=== PATIENT | female | born 1965 | race Caucasian/White ===

== ENCOUNTER 2016-04-01 11:01 | Emergency (ER) | payer OTHER ==
[~2016-04-01] VITALS: Ht 162.6 cm; Wt 77.1 kg
[~2016-04-01 11:01] MED LIST: ATIVAN0.5 MG PO; BENTYL20 MG PO; CIPROFLOXACIN500 MG PO; FLOMAX(MONOGRA0.4 MG PO; GUAIFENESIN-COD10 ML PO; HYDRALAZINE HCL10 M1 PO; MEDROL4 M2 PO; NORVASC10 M1 PO; PERCOCET 325 MG1 TA2 PO; PERCOCET 5-3251 EACH PO; PRILOSEC OTC20 MG PO; PROAIR HFA8.5 GM INH; REGLAN10 MG PO; ZITHROMAX250 M2 PO; ZOFRAN 4 MG TABL4 MG PO; ZOFRAN4 M2 PO
[2016-04-01 12:09] LABS: ABSOLUTE BASOPHIL COUNT 0.1 /CUMM (0.0-0.2); ABSOLUTE EOSINOPHIL COUNT 0 /CUMM (0.0-0.7); ABSOLUTE GRANULOCYTE CT 10.7 /CUMM (1.4-6.5); ABSOLUTE LYMPH COUNT 1.4 /CUMM (1.2-3.4); ABSOLUTE MONOCYTE COUNT 0.2 /CUMM (0.10-0.60); EOSINOPHIL % 0 % (0-5); HEMATOCRIT 44.9 % (37-47); MEAN CORPUSCULAR HGB CONC 34.2 G/DL (33.0-37.0); MEAN CORPUSCULAR VOLUME 93.5 FL (81.0-99.0); MEAN PLATELET VOLUME 7.3 FL (7.4-10.4); PLATELET COUNT 477 /CUMM (130-400); RBC DISTRIBUTION WIDTH 13.6 % (11.5-14.5); WHITE BLOOD CELL COUNT 12.5 /CUMM (4.8-10.8)
--- NOTE | 2016-04-01 12:17 | ED GI/GU/ABDOMINAL COMPLAINT ---
History of Present Illness General Chief Complaint: Dyspnea (COPD, CHF, Other) Stated Complaint: DIFF BREATHING, FACE SWOLLEN Source: patient Exam Limitations: no limitations Allergies Coded Allergies: NO KNOWN ALLERGIES (06/08/13) Triage Note: PT STATES SHE IS VOMITING BLOOD AND HER FACE IS RED AND SWOLLEN. PT STATES ALL HER S/S STARTED YESTERDAY. Triage Nurses Notes Reviewed? yes ? N Is pt currently ? No HPI: This patient is a 50-year-old female with a past medical history including ulcerative colitis who presented to the emergency department today for evaluation of nausea, vomiting, and diarrhea. The patient reported that her symptoms began yesterday. She woke up, "not feeling well," but still went to work. She reported that she got home around 12 or 1:00 and started to have nausea and vomiting. She reported that between yesterday and today she has vomited approximately 8 times. She reported that there seems to be some blood in her vomitus. She reported that she has had several episodes of diarrhea with no blood in the stool. She reported that she is having upper abdominal pain, "where my hernia is." She reported that she does have a hiatal hernia. She was unable to quantify the abdominal pain on a scale of 1-10. The patient reported that she is having some palpitations which she thinks is from anxiety. She denied any chest pain. She did report some shortness of breath. The patient reported tactile fevers and chills. She has been around her grandchildren who are sick. The patient denied any urinary symptoms, back pain, or any other associated symptoms. (JAMILAH DIAZ,EDMUNDO) Vital Signs & Intake/Output Vital Signs & Intake/Output Vital Signs Date Time Temp Pulse Resp B/P Pulse O2 O2 Flow FiO2 Ox Delivery Rate 04/01 1815 88 163/79 04/01 1738 98.8 93 18 212/95 04/01 1728 98.8 93 18 95 Room Air Room Air 04/01 1607 90 206/97 04/01 1605 98.4 106 20 ED Intake and Output 04/02 0000 04/01 1200 Intake Total 1000 Output Total 2 Balance 998 Intake, IV 1000 Output, 2 Emesis Patient 170 lb Weight Reconcile Medications Omeprazole 20 MG CAPSULE.DR 1 CAP PO DAILY GASTRITIS Ondansetron (Zofran Odt) 4 MG TAB.RAPDIS 1-2 TAB SL Q8 PRN NAUSEA (BRADY PEREZ,LISBET) Past History Travel History Traveled to [place] past 21 day No Medical History Any Pertinent Medical History? see below for history Neurological: NONE EENT: NONE Cardiovascular: hypertension Respiratory: asthma Gastrointestinal: hiatal hernia, GASTRITIS Hepatic: NONE Renal: NONE Musculoskeletal: NONE Psychiatric: NONE Endocrine: NONE Blood Disorders: NONE Cancer(s): NONE PARI MUTUEL CLERK/Reproductive: NONE History of MRSA: No History of VRE: No History of CDIFF: No Surgical History Surgical History: non-contributory Psychosocial History Who do you live with Significant Other Services at Home None What is your primary language Kiswahili Tobacco Use: Never used ETOH Use: heavy use Illicit Drug Use: marijuana Family History Hx Contributory? No (EDMUNDO ASKEW PA-C) Review of Systems Review of Systems Constitutional: Reports: see HPI. EENTM: Reports: no symptoms. Respiratory: Reports: see HPI. Cardiovascular: Reports: no symptoms. GI: Reports: see HPI. Genitourinary: Reports: no symptoms. Musculoskeletal: Reports: no symptoms. Skin: Reports: no symptoms. Neurological/Psychological: Reports: no symptoms. All Other Systems: Reviewed and Negative (EDMUNDO ASKEW PA-C) Physical Exam Physical Exam Gastrointestinal: normal bowel sounds, soft, NONDISTENDED. nO ORGANOMEGALY. nO MASSES APPRECIATED. tENDERNESS TO PALPATION DIFFUSELY ACROSS THE ABDOMEN. nEGATIVE rOVSING SIGN. nEGATIVE PSOAS SIGN. nEGATIVE Myers SIGN. nO REBOUND OR GUARDING. Comments: Well-developed well-nourished person in no acute distress HEENT: Normal EENT exam, moist mucous membranes PERRLA bilaterally Neck: Supple Back: Normal inspection Cardiovascular: Regular rate and rhythm with no murmurs, rubs, or gallops Respiratory: Chest nontender. No respiratory distress. Breath sounds clear to auscultation bilaterally with no wheezes, rales, or rhonchi Extremity: Normal and equal pulses Neuro: Alert oriented x3, motor sensory normal, cranial nerves II through XII grossly intact. Skin: No appreciable rash on exposed skin, skin is warm and dry. Psych: Mood and affect is normal, memory and judgment is normal. Core Measures ACS in differential dx? Yes Severe Sepsis Present: No Septic Shock Present: No (EDMUNDO ASKEW PA-C) Progress Differential Diagnosis: AAA, AMI, appendicitis, biliary colic, bowel obstruction , colon cancer, cholecystitis, diverticulitis, gastritis, hepatitis, ischemic bowel, inflamm bowel dis, intrauterine , kidney stone, ovarian cyst, ovarian torsion, pancreatitis, PID/cervicitis, PUD/GERD, perforated viscous, SBO , UTI/pyelo Plan of Care: Orders Procedure Date/time Status RAPID VIRAL INFLUENZA A 04/01 1151 Complete URINALYSIS 04/01 1151 Active TROPONIN LEVEL 04/01 1151 Complete MAGNESIUM 04/01 1151 Complete LIPASE 04/01 1151 Complete DIRECT BILIRUBIN 04/01 1151 Complete COMPREHENSIVE METABOLIC PANEL 04/01 1151 Complete CBC WITHOUT DIFFERENTIAL 04/01 1151 Complete AMYLASE 04/01 1151 Complete EKG 04/01 1151 Active Laboratory Tests 04/01/16 1155: Anion Gap 14, Estimated GFR > 60, BUN/Creatinine Ratio 14.3, Glucose 137 H, Calcium 10.2, Magnesium 1.6, Total Bilirubin 0.8, Direct Bilirubin 0.4, AST 15, ALT 28, Alkaline Phosphatase 117, Troponin I < 0.01, Total Protein 7.6, Albumin 4.5, Globulin 3.1, Albumin/Globulin Ratio 1.5, Amylase 66, Lipase 86, CBC w Diff NO MAN DIFF REQ, RBC 4.80, MCV 93.5, MCH 32.0 H, RDW 13.6, MPV 7.3 L, Gran % 85.6 H, Lymphocytes % 11.5 L, Monocytes % 1.9, Eosinophils % 0, Basophils % 1.0, Absolute Granulocytes 10.7 H, Absolute Lymphocytes 1.4, Absolute Monocytes 0.2, Absolute Eosinophils 0, Absolute Basophils 0.1, PUBS MCHC 34.2 Microbiology 04/01 1215 NASOPHARYN: Influenza Virus A & B Rapid Smear - COMP Diagnostic Imaging: Viewed by Me: Radiology Read, CT Scan. Discussed w/RAD: Radiology Read, CT Scan. Radiology Impression: PATIENT: DARRYN VENEGAS PRESENT AGE: 50 PATIENT ACCOUNT NO: [id number] : 65 LOCATION: [facility] ORDERING PHYSICIAN: EDMUNDO ASKWE PA-C SERVICE DATE: 04/01/16-1306 EXAM TYPE: CAT - CT ABD & PELVIS W IV CONTRAST EXAMINATION: CT ABDOMEN AND PELVIS WITH CONTRAST CLINICAL INFORMATION: Abdominal pain, nausea, vomiting, diarrhea COMPARISON: TECHNIQUE: Multidetector volumetric imaging was performed of the abdomen and pelvis before and after the IV administration of 95 mL of Optiray 320 intravenous contrast. Sagittal and coronal reformatted images were obtained on the technologist's workstation. DLP: 407.63 mGy-cm FINDINGS: LUNG BASES: The visualized lung bases are unremarkable. LIVER, GALLBLADDER, AND BILIARY TREE: The liver is normal in size, shape, and attenuation. No focal hepatic lesion or biliary ductal dilatation is present. The gallbladder is unremarkable with no evidence of radiopaque gallstones, gallbladder wall thickening, or obvious pericholecystic inflammatory changes. PANCREAS: Unremarkable. SPLEEN: Unremarkable. ADRENAL GLANDS: Unremarkable. KIDNEYS AND URETERS: The kidneys are normal in size, shape, and attenuation. No hydronephrosis, hydroureter, or calculi seen. No perinephric stranding. BLADDER: Unremarkable. GASTROINTESTINAL TRACT: A moderate-sized hiatal hernia is present. A duodenal diverticulum is noted. No evidence of bowel obstruction. Assessment of much of the colon is limited due to luminal decompression, though there is no significant pericolonic stranding to strongly suggest a colitis. The appendix is suspected to be collapsed. No free fluid or free air is seen. ABDOMINAL WALL: No significant hernia is appreciated. LYMPH NODES: Normal. VASCULAR: Unremarkable. PELVIC VISCERA: Unremarkable. OSSEOUS STRUCTURES: There is mild facet arthropathy of the lower lumbar spine. Minimal scattered endplate osteophytes are noted. IMPRESSION: No acute findings identified in the abdomen/pelvis. Moderate-sized hiatal hernia. DICTATED BY: MORRO BEY MD DATE/TIME DICTATED:04/01/161352 CARDIOVASCULAR SPECIALIST:MARJORIE DATE/TIME TRANSCRIBED:04/01/161352 CONFIDENTIAL, DO NOT COPY WITHOUT APPROPRIATE AUTHORIZATION. <Electronically signed in Other Vendor System> SIGNED BY: MORRO BEY MD 04/01/16 6277 CXR Impression: PATIENT: DARRYN VENEGAS PRESENT AGE: 50 PATIENT ACCOUNT NO: [id number] : 65 LOCATION: [facility] ORDERING PHYSICIAN: EDMUNDO ASKEW PA-C SERVICE DATE: 04/01/16-1151 EXAM TYPE: RAD - XRY- PORTABLE CHEST XRAY EXAMINATION: XR PORTABLE CHEST CLINICAL INFORMATION: Nausea. COMPARISON: 11/10/2015 TECHNIQUE: Portable AP view of the chest was obtained. FINDINGS: Cardiomediastinal silhouette is within normal limits. No focal consolidation, pleural effusion or pneumothorax. Osseous structures are intact. Hiatal hernia again noted. IMPRESSION: No radiographic evidence of acute pulmonary disease. Hiatal hernia. DICTATED BY: JAD KEARNEY DO DATE/TIME DICTATED:04/01/161254 CARDIOVASCULAR SPECIALIST:MARJORIE DATE/TIME TRANSCRIBED:1254 CONFIDENTIAL, DO NOT COPY WITHOUT APPROPRIATE AUTHORIZATION. < Electronically signed in Other Vendor System> SIGNED BY: JAD KEARNEY DO 04/01/16 1301 Initial ED EKG: normal intervals, LVH, ATRIAL PREMATURE COMPLEX, 97 BPM, SINUS TACHYCARDIA Comments: 04/01/2016 1:06:36 PM: As at the patient's bedside for reevaluation. She is currently resting comfortably on stretcher with her eyes closed. She reported no relief of her symptoms with medications. White blood cell count 12.5. We'll obtain a CT of the abdomen and pelvis with IV contrast. The patient is in agreement with this plan. 04/01/2016 4:51:16 PM: Discussed this patient with on-call timber setter, Dr. Dominguez. He reported that this is likely a Iliana-Corrales tear as she has been vomiting and now is having some bright red emesis. He also reported that is normal for her pressure to be going up with a Iliana-Corrales tear as opposed to down. He recommended giving this patient another 4 mg of Zofran and another 25 mg of Phenergan. 04/01/2016 6:25:30 PM: Was at the patient's bedside for reevaluation. She reported that she is feeling much better. She reported that her nausea has subsided. Blood pressure has normalized. She will be discharged with outpatient gastroenterology follow-up and antibiotics. (JAMILAH DIAZ,EDMUNDO) Departure Departure Disposition: HOME OR SELF CARE Condition: Stable Clinical Impression Primary Impression: Vomiting Qualifiers: Vomiting type: unspecified Vomiting Intractability: non-intractable Nausea presence: with nausea Qualified Code: R11.2 - Nausea with vomiting, unspecified Referrals: PATIENT HAS NO PRIMARY CARE DR (PCP/Family) SREEKANTH PEREZ,TIM Coffman Additional Instructions: Take medication for nausea as prescribed. Please rest and be sure to stay hydrated. Please follow-up with the timber setter whose information has been provided to you in this packet for further evaluation. Return for any worsening symptoms or concerns. Departure Forms: Customer Survey General Discharge Information Prescriptions: Current Visit Scripts Ondansetron (Zofran Odt) 1-2 TAB SL Q8 PRN NAUSEA #12 TAB Omeprazole 1 CAP PO DAILY #14 CAP (JAMILAH DIAZ,EDMUNDO) PA/DATABASE SPECIALIST Co-Sign Statement Statement: ED Attending supervision documentation- [] I saw and evaluated the patient. I have also reviewed all the pertinent lab results and diagnostic results. I agree with the findings and the plan of care as documented in the PA's/DATABASE SPECIALIST's documentation. x I have reviewed the ED Record and agree with the PA's/DATABASE SPECIALIST's documentation. [] Additions or exceptions (if any) to the PAs/DATABASE SPECIALIST's note and plan are summarized below: [] (BRADY PEREZ,LISBET)
[2016-04-01 12:37] LABS: GRANULOCYTE % 85.6 % (42.2-75.2)
--- NOTE | 2016-04-01 13:01 | RADIOLOGY REPORT ---
EXAMINATION: XR PORTABLE CHEST CLINICAL INFORMATION: Nausea. COMPARISON: 11/10/2015 TECHNIQUE: Portable AP view of the chest was obtained. FINDINGS: Cardiomediastinal silhouette is within normal limits. No focal consolidation, pleural effusion or pneumothorax. Osseous structures are intact. Hiatal hernia again noted. IMPRESSION: No radiographic evidence of acute pulmonary disease. Hiatal hernia.
--- NOTE | 2016-04-01 14:04 | CT SCAN REPORT ---
EXAMINATION: CT ABDOMEN AND PELVIS WITH CONTRAST CLINICAL INFORMATION: Abdominal pain, nausea, vomiting, diarrhea COMPARISON: 01/26/2016 TECHNIQUE: Multidetector volumetric imaging was performed of the abdomen and pelvis before and after the IV administration of 95 mL of Optiray 320 intravenous contrast. Sagittal and coronal reformatted images were obtained on the technologist's workstation. DLP: 407.63 mGy-cm FINDINGS: LUNG BASES: The visualized lung bases are unremarkable. LIVER, GALLBLADDER, AND BILIARY TREE: The liver is normal in size, shape, and attenuation. No focal hepatic lesion or biliary ductal dilatation is present. The gallbladder is unremarkable with no evidence of radiopaque gallstones, gallbladder wall thickening, or obvious pericholecystic inflammatory changes. PANCREAS: Unremarkable. SPLEEN: Unremarkable. ADRENAL GLANDS: Unremarkable. KIDNEYS AND URETERS: The kidneys are normal in size, shape, and attenuation. No hydronephrosis, hydroureter, or calculi seen. No perinephric stranding. BLADDER: Unremarkable. GASTROINTESTINAL TRACT: A moderate-sized hiatal hernia is present. A duodenal diverticulum is noted. No evidence of bowel obstruction. Assessment of much of the colon is limited due to luminal decompression, though there is no significant pericolonic stranding to strongly suggest a colitis. The appendix is suspected to be collapsed. No free fluid or free air is seen. ABDOMINAL WALL: No significant hernia is appreciated. LYMPH NODES: Normal. VASCULAR: Unremarkable. PELVIC VISCERA: Unremarkable. OSSEOUS STRUCTURES: There is mild facet arthropathy of the lower lumbar spine. Minimal scattered endplate osteophytes are noted. IMPRESSION: No acute findings identified in the abdomen/pelvis. Moderate-sized hiatal hernia.
[2016-04-01 18:15] VITALS: BP 163/79
[2016-04-01] MEDS ORDERED: OMEPRAZOLE20 M2 PO (18:28)
[2016-04-01] MEDS ORDERED: ZOFRAN ODT4 M1 SL (18:28)
== END 2016-04-01 18:40 ==
LOC: ERH 11:01
PROVIDERS: Physician Assistant
DX: R11.2 Nausea with vomiting, unspecified (principal); R19.7 Diarrhea, unspecified; R10.10 Upper abdominal pain, unspecified; R00.2 Palpitations; R50.9 Fever, unspecified
CPT/HCPCS: 74177; 87804; 87804-59; 93005; 93010; 96374; 96375; 96376; J1885; J2405; J2550; J2765; J3101; J7040